=== PATIENT | female | born 1985 | race Caucasian/White ===

== ENCOUNTER 2019-10-05 11:49 | Inpatient (IN) | payer OTHER ==
[~2019-10-05] VITALS: Ht 167.6 cm; Wt 104.5 kg
[2019-10-05 19:30] VITALS: BP 138/88
[2019-10-05] MEDS ORDERED: OXYTOCIN 30U/ 0.9% NaCL 500ML 500 ML ONE (19:50)
[2019-10-05] MEDS ORDERED: NEWBORN KIT ONE (19:50)
[2019-10-05] MEDS: LACTATED RINGERS 1,000 ML IV SCH (20:00)
[2019-10-05] MEDS ORDERED: OXYTOCIN 30U/ 0.9% NaCL 500ML 500 ML IV ONE (20:04)
[2019-10-05] MEDS ORDERED: D5%-LACTATED RINGERS 1,000 ML IV SCH (20:04)
[2019-10-05] MEDS ORDERED: MISOPROSTOL 25 MCG TABLET ONE (20:07)
[2019-10-05] MEDS: MISOPROSTOL 25 MCG TABLET VG PRN (20:10)
[2019-10-05] MEDS ORDERED: FENTANYL PF 100 MCG/2ML IV PRN (20:30)
[2019-10-05] MEDS ORDERED: SODIUM CITRATE/CITRIC ACID 30 ML UDC PO PRN (20:30)
[2019-10-05] MEDS ORDERED: TERBUTALINE 1 MG/ML, 1ML SQ PRN (20:30)
[2019-10-05] MEDS ORDERED: ALUMINUM/MAG/SIMETHICONE 30 ML UDC PO PRN (20:30)
[2019-10-05] MEDS ORDERED: CALCIUM CARBONATE 500 MG TAB.CHEW PO PRN (20:30)
[2019-10-05] MEDS ORDERED: ONDANSETRON 2MG/ML, 2ML IVPush PRN (20:30)
[2019-10-05] MEDS ORDERED: TERBUTALINE 1 MG/ML, 1ML IVPush PRN (20:30)
[2019-10-05] MEDS ORDERED: METOCLOPRAMIDE 5 MG/ML, 2ML IVPush PRN (20:30)
[2019-10-05] MEDS ORDERED: FENTANYL PF 100 MCG/2ML IVPush PRN (20:30)
[2019-10-05 20:31] LABS: BASOPHILS # (AUTO) 0.05 x10^3/uL (0-0.1); BASOPHILS % (AUTO) 1 % (0-1); EOSINOPHILS # (AUTO) 0.14 x10^3/uL (0-0.4); EOSINOPHILS % (AUTO) 1 % (1-7); LYMPHOCYTES % (AUTO) 16 % (22-44); MD NO; MEAN CORPUSCULAR HGB CONC 32.7 g/dL (32.4-35.8); MEAN CORPUSCULAR VOLUME 85.8 fL (80-100); MEAN PLATELET VOLUME 9.2 fL (7.4-10.4); MONOCYTES # (AUTO) 0.62 x10^3/uL (0.2-0.8); MONOCYTES % (AUTO) 6 % (2-9); NEUTROPHILS # (AUTO) 7.79 x10^3/uL (1.8-6.8); NEUTROPHILS % (AUTO) 76 % (42-75); PLATELET COUNT 228 x10^3/uL (130-400); RED CELL DISTRIBUTION WIDTH 15.4 % (9.6-15.2)
[2019-10-06] MEDS ORDERED: MISOPROSTOL 25 MCG TABLET ONE (00:06)
[2019-10-06] MEDS: MISOPROSTOL 25 MCG TABLET VG PRN (00:10)
[2019-10-06] MEDS ORDERED: OXYTOCIN 30U/ 0.9% NaCL 500ML 500 ML IV PRN (02:53)
[2019-10-06] MEDS ORDERED: OXYTOCIN 30U/ 0.9% NaCL 500ML 0 ML ONE (03:59)
[2019-10-06] MEDS: LACTATED RINGERS 1,000 ML IV SCH ×5 (04:12→18:36)
[2019-10-06] MEDS ORDERED: FENTANYL/BUPIV./NS/PF 250 ML EPIDCONT SCH (04:26)
[2019-10-06] MEDS ORDERED: ONDANSETRON 2MG/ML, 2ML ONE (04:40)
[2019-10-06] MEDS ORDERED: FENTANYL PF 500 MCG, BUPIVACAINE/PF 0.5%, 30ML 62.5 ML in SODIUM CHLORIDE 0.9% 177.5 ML EPIDCONT SCH (05:00)
[2019-10-06] MEDS: LACTATED RINGERS 1,000 ML IVBOLUS PRN ×2 (06:42→07:00)
[2019-10-06] MEDS ORDERED: BUPIVACAINE 0.25% ONE (07:04)
[2019-10-06] MEDS: EPHEDRINE 50 MG/ML, 1ML IVPush PRN ×2 (07:51→08:08)
[2019-10-06] MEDS ORDERED: CALCIUM CARBONATE 500 MG TAB.CHEW ONE (18:34)
[2019-10-07] MEDS ORDERED: SODIUM CITRATE/CITRIC ACID 30 ML UDC ONE (00:29)
[2019-10-07] MEDS ORDERED: METOCLOPRAMIDE 5 MG/ML, 2ML ONE (00:30)
[2019-10-07] MEDS ORDERED: FENTANYL PF 100 MCG/2ML ONE ×3 (00:33→02:11)
[2019-10-07] MEDS ORDERED: OXYTOCIN 10 UNITS/ML, 1ML ONE (00:33)
[2019-10-07] MEDS ORDERED: ONDANSETRON 2MG/ML, 2ML ONE (00:33)
[2019-10-07] MEDS ORDERED: CEFAZOLIN 1,000 MG ONE (00:33)
[2019-10-07] MEDS ORDERED: HYDROmorphone 2 MG/ML, 1ML ONE (00:33)
[2019-10-07] MEDS ORDERED: METOCLOPRAMIDE 5 MG/ML, 2ML IV ONE (01:00)
[2019-10-07] MEDS ORDERED: SODIUM CITRATE/CITRIC ACID 30 ML UDC PO ONE (01:00)
[2019-10-07] MEDS ORDERED: AZITHROMYCIN 500 MG in SODIUM CHLORIDE 0.9% 250 ML IV ONE (01:00)
[2019-10-07] MEDS ORDERED: LACTATED RINGERS 1,000 ML IVBOLUS ONE (01:00)
[2019-10-07] MEDS ORDERED: LIDOCAINE-MPF 2% ,5ML ONE ×5 (01:29→02:12)
[2019-10-07] MEDS ORDERED: SODIUM CHLORIDE 0.9% PF 10ML ONE ×2 (01:29)
[2019-10-07] MEDS ORDERED: INDIGO CARMINE 0.8%, 5ML ONE (01:44)
[2019-10-07] MEDS: KETOROLAC 30 MG/1 ML IV SCH ×4 (02:00→19:42)
[2019-10-07] MEDS ORDERED: KETOROLAC 30 MG/1 ML ONE (02:04)
[2019-10-07] MEDS: LACTATED RINGERS 1,000 ML IV SCH ×7 (02:43→23:03)
[2019-10-07] MEDS ORDERED: METOCLOPRAMIDE 5 MG/ML, 2ML IV PRN (03:30)
[2019-10-07] MEDS ORDERED: GLYCERIN ADULT SUPP PR PRN (03:30)
[2019-10-07] MEDS ORDERED: DIPH,PERTUSS(ACELL),TET VAC/PF NC IM-VACC PRN (03:30)
[2019-10-07] MEDS ORDERED: ACETAMINOPHEN 325 MG TABLET PO PRN (03:30)
[2019-10-07] MEDS ORDERED: SIMETHICONE 80 MG CHEW TAB PO PRN (03:30)
[2019-10-07] MEDS: OXYTOCIN 30U/ 0.9% NaCL 500ML 500 ML IV SCH ×3 (03:30→23:03)
[2019-10-07] MEDS ORDERED: MISOPROSTOL 200 MCG TABLET PR PRN (03:30)
[2019-10-07] MEDS ORDERED: METHYLERGONOVINE 0.2 MG/ML IM PRN (03:30)
[2019-10-07] MEDS ORDERED: ONDANSETRON 2MG/ML, 2ML IV PRN (03:30)
[2019-10-07] MEDS ORDERED: CALCIUM CARBONATE 500 MG TAB.CHEW PO PRN (03:30)
[2019-10-07] MEDS ORDERED: MEASLES,MUMPS&RUBELLA VACC/PF 0.5 ML SQ-VACC PRN (03:30)
[2019-10-07] MEDS ORDERED: BISACODYL 10 MG SUPP PR PRN (03:30)
[2019-10-07] MEDS: AMPICILLIN/SULBACTAM 3 GM in SODIUM CHLORIDE 0.9% 100 ML IV SCH ×3 (03:49→19:42)
[2019-10-07] MEDS ORDERED: OXYcodone 5 MG/5 ML ORAL.SOL UDC ONE (04:17)
[2019-10-07 04:45] VITALS: BP 153/92
[2019-10-07] MEDS: OXYcodone/APAP 5/325MG TABLET PO PRN ×4 (07:16→20:40)
[2019-10-07 08:10] VITALS: BP 134/82
[2019-10-07] MEDS: DOCUSATE 100 MG CAPSULE PO PRN ×2 (08:11→20:40)
[2019-10-07] MEDS: PRENATAL VIT/IRON/FA 1 EACH TABLET PO SCH (08:24)
[2019-10-07 10:06] LABS: MEAN CORPUSCULAR HEMOGLOBIN 27.5 pg (27.0-34.8); MEAN CORPUSCULAR HGB CONC 32.9 g/dL (32.4-35.8); MEAN CORPUSCULAR VOLUME 83.7 fL (80-100); MEAN PLATELET VOLUME 9.1 fL (7.4-10.4); PLATELET COUNT 174 x10^3/uL (130-400); RED CELL DISTRIBUTION WIDTH 14.9 % (9.6-15.2)
[2019-10-07 10:35] LABS: MD YES
[2019-10-07 10:37] LABS: <PLATELET ESTIMATE> ADEQUATE; <PLT MORPHOLOGY> NORMAL PLT MORPH; <RBC MORPHOLOGY> NORMAL; BAND#(MANUAL) 1.46 x10^3/uL; BANDS%(MANUAL) 8 % (0-7); LYMPH#(MANUAL) 0.91 x10^3/uL (1-3.4); LYMPHS% (MANUAL) 5 % (22-44); MONOS#(MANUAL) 0.36 x10^3/uL (0.3-2.7); MONOS% (MANUAL) 2 % (2-9); SEG#(MANUAL) 15.47 x10^3/uL (1.8-6.8); SEGS% (MANUAL) 85 % (42-75)
[2019-10-07 11:45] VITALS: BP 119/74
[2019-10-07 18:00] VITALS: BP 110/71
[2019-10-07 19:30] VITALS: BP 108/73
[2019-10-08 02:00] VITALS: BP 123/79
[2019-10-08] MEDS: OXYcodone/APAP 5/325MG TABLET PO PRN (02:08)
[2019-10-08] MEDS: KETOROLAC 30 MG/1 ML IV SCH ×4 (02:08→20:16)
[2019-10-08] MEDS: LACTATED RINGERS 1,000 ML IV SCH ×5 (03:03→19:03)
[2019-10-08] MEDS: DOCUSATE 100 MG CAPSULE PO PRN ×2 (08:30→20:16)
[2019-10-08] MEDS: PRENATAL VIT/IRON/FA 1 EACH TABLET PO SCH (08:30)
[2019-10-08 08:45] VITALS: BP 136/84
[2019-10-08] MEDS: OXYTOCIN 30U/ 0.9% NaCL 500ML 500 ML IV SCH ×2 (09:03→19:03)
[2019-10-08 20:10] VITALS: BP 137/81
[2019-10-08 21:30] VITALS: BP 131/87
[2019-10-09] MEDS: OXYcodone/APAP 5/325MG TABLET PO PRN ×2 (01:18→06:04)
[2019-10-09] MEDS: IBUPROFEN 600 MG TABLET PO PRN ×4 (02:03→21:13)
[2019-10-09] MEDS: LACTATED RINGERS 1,000 ML IV SCH ×4 (03:03→15:03)
[2019-10-09] MEDS: OXYTOCIN 30U/ 0.9% NaCL 500ML 500 ML IV SCH ×2 (05:03→15:03)
[2019-10-09 08:04] VITALS: BP 132/90
[2019-10-09] MEDS: PRENATAL VIT/IRON/FA 1 EACH TABLET PO SCH (08:19)
[2019-10-09] MEDS: DOCUSATE 100 MG CAPSULE PO PRN ×2 (08:19→19:53)
[2019-10-09] MEDS: ACETAMINOPHEN 500 MG TABLET PO PRN ×2 (11:29→19:53)
[2019-10-09] MEDS ORDERED: OXYcodone IR 5MG TABLET PO PRN (11:30)
[2019-10-09 17:46] LABS: ALANINE AMINOTRANSFERASE 32 U/L (12-78); ANION GAP 9 mmol/L (5-15); CALCIUM 8.5 mg/dL (8.5-10.1); CHLORIDE 111 mmol/L (98-107); CREATININE 0.83 mg/dL (0.55-1.02)
[2019-10-09 17:48] LABS: ALKALINE PHOSPHATASE 115 U/L (45-117); BILIRUBIN,TOTAL 0.3 mg/dL (0.2-1.0)
[2019-10-09 18:20] VITALS: BP 121/68
[2019-10-09 18:39] LABS: MEAN CORPUSCULAR HEMOGLOBIN 27.6 pg (27.0-34.8); MEAN CORPUSCULAR VOLUME 86.2 fL (80-100); MEAN PLATELET VOLUME 9.2 fL (7.4-10.4); PLATELET COUNT 232 x10^3/uL (130-400); RED BLOOD COUNT 3.98 x10^6/uL (3.82-5.3); RED CELL DISTRIBUTION WIDTH 15.6 % (9.6-15.2)
[2019-10-09] MEDS ORDERED: OMNIPAQUE 350 MG/ML, 100ML BOTTLE ONE (18:54)
[2019-10-09 19:02] LABS: BASOPHILS # (AUTO) 0.08 x10^3/uL (0-0.1); BASOPHILS % (AUTO) 1 % (0-1); EOSINOPHILS % (AUTO) 3 % (1-7); LYMPHOCYTES # (AUTO) 1.44 x10^3/uL (1-3.4); LYMPHOCYTES % (AUTO) 15 % (22-44); MD SCAN; MONOCYTES # (AUTO) 0.38 x10^3/uL (0.2-0.8); MONOCYTES % (AUTO) 4 % (2-9); NEUTROPHILS # (AUTO) 7.47 x10^3/uL (1.8-6.8); NEUTROPHILS % (AUTO) 77 % (42-75)
[2019-10-09 19:45] VITALS: BP 148/85
[2019-10-09] MEDS ORDERED: LORazepam 1MG TABLET PO PRN (20:30)
[2019-10-10 00:30] VITALS: BP 129/74
[2019-10-10] MEDS: ACETAMINOPHEN 500 MG TABLET PO PRN ×2 (00:38→08:09)
[2019-10-10 03:40] VITALS: BP 125/81
[2019-10-10] MEDS: IBUPROFEN 600 MG TABLET PO PRN ×2 (03:44→10:23)
[2019-10-10 07:00] VITALS: BP 129/85
[2019-10-10] MEDS: PRENATAL VIT/IRON/FA 1 EACH TABLET PO SCH (08:09)
[2019-10-10] MEDS: DOCUSATE 100 MG CAPSULE PO PRN (08:09)
[2019-10-10 12:20] VITALS: BP 133/77
[2019-10-10] MEDS ORDERED: IBUP-1222 PO (13:28)
== END 2019-10-10 14:00 | disposition home or self-care (01) | DRG 787 ==
LOC: EDIP 19:40 → INTOOBSV 19:40 → OBSVTOIN 19:40 → LDIP 19:54 → 2NW 10-07 04:31
PROVIDERS: ADMIT Obstetrics & Gynecology; ATTEND Obstetrics & Gynecology
PROC: 10D00Z1 Extraction of Products of Conception, Low, Open Approach (ICD-10-PCS; principal; 2019-10-07)
DX: O77.0 Labor and delivery complicated by meconium in amniotic fluid (principal); D62 Acute posthemorrhagic anemia; R18.8 Other ascites; O62.1 Secondary uterine inertia; R31.9 Hematuria, unspecified; R47.1 Dysarthria and anarthria; O75.89 Other specified complications of labor and delivery; O69.89X0 Labor and delivery complicated by other cord complications, not applicable or unspecified; O35.8XX0 Maternal care for other (suspected) fetal abnormality and damage, not applicable or unspecified; Z37.0 Single live birth; Z3A.39 39 weeks gestation of pregnancy; O90.81 Anemia of the puerperium
CPT/HCPCS: 36415; J3490; J7121; 70450; 70496; 70498; 70551; 80053; 82803; 82962; 84550; 85025; 86850; 86900; 93005; G0378; J0295; J0456; J0690; J1170; J1885; J2405; J3010; Q9967; J2590; J2765; J7050; J7120